=== PATIENT | male | born 1995 | race Caucasian/White ===

== ENCOUNTER → 2017-08-13 | Emergency (ER) | payer OTHER ==
[~2017-08-13] VITALS: Ht 172.7 cm; Wt 69.9 kg
[~2017-08-13] MED LIST: DOXYCYCLINE HY100 MG PO; KETO10TA2 PO; NAPROXEN250 MG
== END | disposition home or self-care (01) ==
LOC: ER 11:53
DX: N45.1 Epididymitis (principal)